=== PATIENT | female | born 1940 | race Caucasian/White ===

== ENCOUNTER 2017-05-23 00:08 | Emergency (ER) | payer MEDICARE, MEDICAID, SELFPAY | END 2017-05-23 02:54 | disposition E | PROVIDERS: Emergency Provider Emergency Medicine; Visit Provider Emergency Medicine | DX: I46.9 Cardiac arrest, cause unspecified (principal); E11.9 Type 2 diabetes mellitus without complications; I25.10 Atherosclerotic heart disease of native coronary artery without angina pectoris; I11.0 Hypertensive heart disease with heart failure; I50.9 Heart failure, unspecified; J44.9 Chronic obstructive pulmonary disease, unspecified; Z79.01 Long term (current) use of anticoagulants; Z79.84 Long term (current) use of oral hypoglycemic drugs; Z79.02 Long term (current) use of antithrombotics/antiplatelets; Z79.899 Other long term (current) drug therapy | CPT/HCPCS: 94002; 31500; 92950; 96365; 96375; 99285 ==